=== PATIENT | female | born 1970 ===

== ENCOUNTER → 2018-03-13 18:12 | Outpatient (REF) | payer OTHER, SELFPAY | LOC: LAB 18:12 | PROVIDERS: Visit Provider Family Medicine | DX: R53.82 Chronic fatigue, unspecified (principal) | CPT/HCPCS: 36415; 83001 ==

== ENCOUNTER → 2018-03-21 12:44 | Outpatient (REF) | payer OTHER, SELFPAY ==
[2018-03-21 14:06] LABS: Erythrocyte Sedimentation Rate 3 MM/HR (0-20)
== END ==
LOC: LAB 12:44
PROVIDERS: Visit Provider Family Medicine
DX: R53.83 Other fatigue (principal)
CPT/HCPCS: 36415; 85651